=== PATIENT | female | born 1990 | race Caucasian/White ===

== ENCOUNTER 2018-07-28 10:23 | Emergency (ER) | payer MEDICAID ==
[2018-07-28] MEDS: CEFTRIAXONE 1 GM INJ IM (13:17)
[2018-07-28] MEDS: LIDOCAINE 1% (MPF) 5 ML VIAL INJ (13:17)
[2018-07-28 13:19] LABS: URINE BLOOD (Dip) POC Negative (NEGATIVE); URINE GLUCOSE (Dip) POC Negative (NEGATIVE); URINE KETONES (Dip) POC Negative (NEGATIVE); URINE LEUKOCYTE EST (Dip) POC 1+ (NEGATIVE); URINE NITRITE (Dip) POC Negative (NEGATIVE); URINE TOTAL PROTEIN POC 1+ (NEGATIVE)
== END 2018-07-28 13:41 | disposition home or self-care (01) ==
LOC: FTE 13:41
DX: O23.41 Unspecified infection of urinary tract in pregnancy, first trimester (principal); Z3A.12 12 weeks gestation of pregnancy
CPT/HCPCS: 81003; 87086; 96372; 99284-25